=== PATIENT | female | born 1960 | race Caucasian/White ===

== ENCOUNTER 2017-03-17 09:07 | Day surgery (SDC) | payer OTHER ==
[~2017-03-17] VITALS: Ht 149.9 cm; Wt 50.5 kg
[2017-03-17] MEDS ORDERED: ATORVASTATIN (09:30)
[2017-03-17] MEDS ORDERED: METFORMIN (09:30)
[2017-03-17] MEDS ORDERED: ASPIRIN (09:30)
[2017-03-17 09:32] VITALS: Ht 149.9 cm; Wt 50.5 kg
[2017-03-17 10:50] VITALS: BP 117/60; PULSE 71; RESP 18
[2017-03-17] MEDS ORDERED: FENTAnyl 50 MCG/ML VIAL ONE (11:17)
[2017-03-17] MEDS ORDERED: MIDAZOLAM 1 MG/ML 2 ML INJ ONE (11:17)
--- NOTE | 2017-03-17 11:59 | GILP ---
DATE OF PROCEDURE: NAME OF PROCEDURES: 1. Esophagogastroduodenoscopy and biopsy. 2. Colonoscopy. SURGEON: Reyna Amos MD PREOPERATIVE DIAGNOSES: 1. Abdominal pain. 2. Chronic heartburn. 3. Rectal bleeding. POSTOPERATIVE DIAGNOSES: 1. Gastroesophageal reflux disease. 2. Gastritis with erosions. 3. Gastric mucosal biopsies were taken for Helicobacter pylori test. 4. Colonoscopy all the way to the cecum. 5. Internal hemorrhoids. 6. No colitis or neoplasm was identified. INDICATION FOR THE PROCEDURE: Ms. Maria Ines Earl is a 56-year-old female patient who had upper ab dominal pain and chronic heartburn, not responding to therapy. She also had rectal bleeding. She n ever had screening colonoscopy. The patient was scheduled for endoscopy and colonoscopy for further evaluation. The procedures and possible complications are well explained to the patient, she understood and cons ented to the procedure. DESCRIPTION OF PROCEDURE: Under the influence of fentanyl and Versed, the gastroscope was carefully introduced into the esophagus and under direct vision, it was advanced to the stomach and through t he pylorus into the duodenal bulb and descending duodenum. FINDINGS: ESOPHAGUS: The patient had gastroesophageal reflux but the esophageal mucosa was normal. STOMACH: The patient had gastritis with multiple erosions. Gastric mucosal biopsies were taken for H. pylori test. DUODENUM: Normal. The colonoscope was carefully introduced in the rectum and under direct vision, it was advanced all the way to the cecum. FINDINGS: The patient had internal hemorrhoids. No colitis or neoplasm was identified. She tolerated the procedures very well and there was no complication from the procedures. At the en d of the procedures, she was awake with stable vital signs and she was discharged home to the care o f her family. IMPRESSION: 1. Gastroesophageal reflux disease. 2. Gastritis with erosions. 3. Gastric mucosal biopsies were taken for Helicobacter pylori test. 4. Colonoscopy all the way to the cecum. 5. Internal hemorrhoids. 6. No colitis or neoplasm was identified. PLAN: 1. Omeprazole 40 mg p.o. q.a.m. 2. Anusol-HC 2.5% cream at bedtime p.r.n. Await H. pylori test report. Dictated By: REYNA OCONEY/BENNETT Conf#: [id number] DID#: [id number]
== END 2017-03-17 12:03 | disposition home or self-care (01) ==
LOC: GIL 09:07
PROVIDERS: ATTEND Internal Medicine Gastroenterology
DX: K21.9 Gastro-esophageal reflux disease without esophagitis (principal); K29.60 Other gastritis without bleeding; K64.8 Other hemorrhoids; E11.9 Type 2 diabetes mellitus without complications
CPT/HCPCS: 43239; 45378; 82962; 87081; J2250; J3010; Z7610